=== PATIENT | male | born 1965 | race Hispanic/Latino ===

== ENCOUNTER 2024-06-23 07:38 | Observation (INO) | payer BC, OTHER ==
[~2024-06-23] VITALS: Ht 167.6 cm; Wt 100.2 kg
[~2024-06-23 07:38] MED LIST: MELOXICAM7.5 MG PO
[2024-06-23] MEDS ORDERED: SODIUM CHLORIDE 0.9% 500ML 500 ML ONE (09:04)
[2024-06-23] MEDS ORDERED: TRANEXAMIC ACID 20 ML ONE (09:05)
[2024-06-23] MEDS ORDERED: Vancomycin IV 500 MG ONE (09:05)
[2024-06-23] MEDS: DEXAMETHASONE SOD PHOS 10 MG/1 ML VIAL ONE (09:28)
[2024-06-23] MEDS: CELECOXIB 200 MG CAP ONE (09:28)
[2024-06-23] MEDS: LACTATED RINGER'S 1,000 ML ONE (09:28)
[2024-06-23] MEDS: GABAPENTIN 300 MG CAP ONE (09:29)
[2024-06-23] MEDS: Vancomycin IV 1 GM VIAL ONE (09:29)
[2024-06-23] MEDS: SODIUM CHLORIDE 0.9% 250ML 250 ML ONE (09:29)
[2024-06-23] MEDS ORDERED: ROPIVACAINE 0.5% 5 MG/ML 30 ML SDV ONE (10:45)
[2024-06-23] MEDS ORDERED: HYDRALAZINE HCL 20 MG/ML VIAL ONE (12:31)
[2024-06-23] MEDS ORDERED: ACETAMINOPHEN 650 MG SUPP PR PRN (13:15)
[2024-06-23] MEDS ORDERED: ONDANSETRON HCL INJ 2MG/ML 2ML 2 MG/ML VIAL IV PRN (13:15)
[2024-06-23] MEDS ORDERED: DIPHENHYDRAMINE HCL INJ 50 MG/ML VIAL IV PRN (13:15)
[2024-06-23] MEDS ORDERED: ZOLPIDEM TARTRATE 5 MG TAB PO PRN (13:15)
[2024-06-23] MEDS ORDERED: DOCUSATE SODIUM 100 MG CAP PO PRN (13:15)
[2024-06-23] MEDS: MEPERIDINE HCL INJ 25 MG/ML VIAL IV ONE (13:25)
[2024-06-23] MEDS: FENTANYL CITRATE/PF 100MCG/2 ML INJ IV ONE (13:30)
[2024-06-23] MEDS ORDERED: FENTANYL CITRATE/PF 100MCG/2 ML INJ ONE (13:50)
[2024-06-23 15:00] VITALS: BP 131/81; PULSE 73; RESP 18; TEMP 97.5; O2SAT 97
[2024-06-23] MEDS: HYDROCODONE/APAP 7.5MG-325MG 1 EA TAB PO PRN (15:28)
[2024-06-23] MEDS: SODIUM CHLORIDE 0.9% 1000ML 1,000 ML IV SCH (15:29)
[2024-06-23 15:40] VITALS: PULSE 78; RESP 18; O2SAT 96
[2024-06-23 15:45] VITALS: BP 139/92; PULSE 87; RESP 17; TEMP 97; O2SAT 97
[2024-06-23] MEDS: CELECOXIB 200 MG CAP PO SCH (16:37)
[2024-06-23] MEDS: ASPIRIN 325 MG TAB PO SCH (16:37)
[2024-06-23] MEDS: ROPIVACAINE/EPI/CLONIDINE/KET 50 ML SYRINGE INJ ONE (16:47)
[2024-06-23] MEDS: FENTANYL CITRATE/PF 100MCG/2 ML INJ ONE (16:47)
[2024-06-23] MEDS: MEPERIDINE HCL INJ 25 MG/ML VIAL ONE (16:47)
[2024-06-23 20:00] VITALS: BP 134/82; PULSE 70; RESP 19; TEMP 97.3; O2SAT 100
[2024-06-23 20:05] VITALS: PULSE 82; RESP 18; O2SAT 97
[2024-06-23] MEDS: Vancomycin IV 1 GM in SODIUM CHLORIDE 0.9% 250ML 250 ML IV SCH (20:33)
[2024-06-24] VITALS: BP 137/83; PULSE 65; RESP 18; TEMP 97.3; O2SAT 96
[2024-06-24 04:00] VITALS: BP 126/83; PULSE 67; RESP 20; TEMP 98; O2SAT 99
[2024-06-24 05:43] LABS: HEMATOCRIT 35.6 % (38.2-49.6); HEMOGLOBIN 11.1 g/dL (14.0-18.0)
[2024-06-24 07:28] VITALS: BP 123/88; PULSE 72; RESP 17; TEMP 98.2; O2SAT 99
[2024-06-24 07:53] VITALS: PULSE 76; RESP 18; O2SAT 98
[2024-06-24 07:58] VITALS: BP 123/88; PULSE 76; RESP 18; TEMP 98.2; O2SAT 98
[2024-06-24] MEDS ORDERED: DEXTROSE 50% SYRINGE 50 ML IV PRN (08:45)
[2024-06-24] MEDS ORDERED: ONDANSETRON HCL 4 MG ORAL DISINTEGRATING TAB PO PRN (11:00)
[2024-06-24 11:18] VITALS: BP 137/78; PULSE 78; RESP 18; TEMP 97.5; O2SAT 98
[2024-06-24] MEDS: INSULIN LISPRO 100 UNIT/1 ML 3ML VIAL SQ SCH (11:22)
[2024-06-24] MEDS: HYDROCODONE/APAP 5MG-325MG TAB PO PRN (12:48)
[2024-06-24] MEDS ORDERED: ACETAMINOPHEN 1000 MG/100 ML IV PRN (13:15)
[2024-06-24] MEDS ORDERED: ASPIRIN81 MG PO (14:23)
== END 2024-06-24 15:20 | disposition home health service (06) ==
LOC: OR 07:38 → PACU V 13:01 → MED/SURG 14:24
PROVIDERS: ADMIT Specialist; ATTEND Specialist
DX: T84.033A Mechanical loosening of internal left knee prosthetic joint, initial encounter (principal); Z96.652 Presence of left artificial knee joint; Y83.8 Other surgical procedures as the cause of abnormal reaction of the patient, or of later complication, without mention of misadventure at the time of the procedure; I10 Essential (primary) hypertension; E78.5 Hyperlipidemia, unspecified; E66.01 Morbid (severe) obesity due to excess calories; Z68.35 Body mass index [BMI] 35.0-35.9, adult; Z79.899 Other long term (current) drug therapy; Z79.82 Long term (current) use of aspirin
CPT/HCPCS: 27487; 36415 ×2; 73560; 82948 ×2; 85014; 85018; 86850; 86900; 94799 ×2; 97116 ×2; 97161; 97530; C1713 ×4; C1776 ×5; G0378 ×2; J0360; J1100; J2175; J2795; J3010; J3370 ×3; J7030; J7040; J7050 ×2; J7121

== ENCOUNTER 2024-07-29 14:45 | Outpatient (RCR) | payer OTHER ==
[~2024-07-29 14:45] MED LIST changes: +ASPIRIN81 MG PO
== END 2024-08-01 ==
LOC: PT 14:45
PROVIDERS: ATTEND Physician Assistant
DX: Z47.1 Aftercare following joint replacement surgery (principal); Z96.652 Presence of left artificial knee joint; M25.562 Pain in left knee; M25.662 Stiffness of left knee, not elsewhere classified; M62.81 Muscle weakness (generalized); R26.89 Other abnormalities of gait and mobility

== ENCOUNTER → 2024-09-01 | Outpatient (RCR) | payer OTHER | LOC: PT 08-04 07:20 | PROVIDERS: ATTEND Physician Assistant | DX: Z47.1 Aftercare following joint replacement surgery (principal); Z96.652 Presence of left artificial knee joint; M25.562 Pain in left knee; M62.81 Muscle weakness (generalized); M25.662 Stiffness of left knee, not elsewhere classified; R26.89 Other abnormalities of gait and mobility ==

== ENCOUNTER → 2024-10-02 | Outpatient (RCR) | payer OTHER | LOC: PT 09-04 11:18 | PROVIDERS: ATTEND Physician Assistant | DX: Z47.1 Aftercare following joint replacement surgery (principal); Z96.652 Presence of left artificial knee joint; M62.81 Muscle weakness (generalized); R26.89 Other abnormalities of gait and mobility ==

== ENCOUNTER 2024-10-13 10:00 | Outpatient (RCR) | payer OTHER | END 2024-10-30 | LOC: PT 10:00 | PROVIDERS: ATTEND Physician Assistant | DX: Z47.1 Aftercare following joint replacement surgery (principal); Z96.652 Presence of left artificial knee joint; M25.562 Pain in left knee; M25.662 Stiffness of left knee, not elsewhere classified; M62.81 Muscle weakness (generalized); R26.89 Other abnormalities of gait and mobility ==

== ENCOUNTER 2025-02-15 11:25 | Inpatient (IN) | payer OTHER ==
[2025-02-12 12:01] LABS: CALCIUM 9.2 mg/dL (8.4-10.2); CREATININE, SERUM 0.79 mg/dL (0.72-1.25)
[~2025-02-15] VITALS: Ht 167.6 cm; Wt 103.4 kg
[~2025-02-15 11:25] MED LIST changes: +METFORMIN HCL850 MG PO
[2025-02-15] MEDS: GABAPENTIN 300 MG CAP ONE (12:11)
[2025-02-15] MEDS: CELECOXIB 200 MG CAP ONE (12:11)
[2025-02-15] MEDS: DEXAMETHASONE SOD PHOS 10 MG/1 ML VIAL ONE (12:11)
[2025-02-15] MEDS: LACTATED RINGER'S 1,000 ML ONE (12:11)
[2025-02-15] MEDS: SODIUM CHLORIDE 0.9% 250ML 250 ML ONE (12:11)
[2025-02-15] MEDS: Vancomycin IV 1 GM VIAL ONE (12:12)
[2025-02-15 13:36] LABS: BASOPHILS % 0.3 % (0.0-1.0); EOSINOPHILS # (AUTO) 0.1 (0.0-0.4); EOSINOPHILS % 0.8 % (0.0-6.0); HEMATOCRIT 39.1 % (38.2-49.6); LYMPHOCYTES # (AUTO) 2.2 (1.0-3.2); LYMPHOCYTES % 24.9 % (18.0-39.1); MEAN CORPUSCULAR HEMOGLOBIN 26.5 pg (28-32); MEAN CORPUSCULAR HGB CONC 30.7 g/dL (31-35); MEAN CORPUSCULAR VOLUME 86.5 fL (81-99); MONOCYTES # (AUTO) 0.6 (0.2-0.8); MONOCYTES % 6.9 % (4.4-11.3); NEUTROPHILS # (AUTO) 5.8 (2.1-6.9); NEUTROPHILS % 66.4 % (38.7-80.0); PLATELET COUNT 307 x10e3/uL (140-360); RED BLOOD COUNT 4.52 x10e6/uL (4.3-5.7); RED CELL DISTRIBUTION WIDTH 16.2 % (11.7-14.4); WHITE BLOOD COUNT 8.74 x10e3/uL (4.8-10.8)
[2025-02-15] MEDS ORDERED: FENTANYL CITRATE/PF 100MCG/2 ML INJ ONE ×2 (14:22→14:28)
[2025-02-15] MEDS ORDERED: BUPIVACAINE/EPI 0.5% 30ML SDV-MPF INJ ONE (14:22)
[2025-02-15] MEDS ORDERED: DEXAMETHASONE SOD PHOS INJ 4 MG/ML SDV ONE ×2 (14:22→15:11)
[2025-02-15] MEDS ORDERED: MIDAZOLAM HCL 2 MG/2 ML VIAL ONE (14:22)
[2025-02-15] MEDS ORDERED: LIDOCAINE HCL 2% LOCAL INJ 5 ML SDV VIAL INJ ONE (14:27)
[2025-02-15] MEDS ORDERED: PROPOFOL IV EMULSION 10 MG/ML 20 ML VIAL ONE (14:28)
[2025-02-15] MEDS ORDERED: ONDANSETRON HCL INJ 2MG/ML 2ML 2 MG/ML VIAL ONE (15:11)
[2025-02-15] MEDS ORDERED: ACETAMINOPHEN 1000 MG/100 ML 100 ML IV ONE (15:39)
[2025-02-15] MEDS ORDERED: TOBRAMYCIN 1.2GM BULK BOTTLE ONE (16:07)
[2025-02-15] MEDS ORDERED: DIPHENHYDRAMINE HCL INJ 50 MG/ML VIAL IV PRN (17:00)
[2025-02-15] MEDS ORDERED: ACETAMINOPHEN 650 MG SUPP PR PRN (17:00)
[2025-02-15] MEDS: HYDROCODONE/APAP 7.5MG-325MG 1 EA TAB PO ONE (17:17)
[2025-02-15 18:00] VITALS: BP 171/95; PULSE 68; RESP 19; TEMP 97.5; O2SAT 100
[2025-02-15] MEDS: HYDROCODONE/APAP 5MG-325MG TAB PO PRN (20:10)
[2025-02-15] MEDS: CELECOXIB 200 MG CAP PO SCH (20:10)
[2025-02-15] MEDS: SODIUM CHLORIDE 0.9% 1000ML 1,000 ML IV SCH (20:11)
[2025-02-15 20:15] VITALS: BP 136/92; PULSE 63; RESP 20; TEMP 97.5; O2SAT 100
[2025-02-15] MEDS ORDERED: ZOLPIDEM TARTRATE 5 MG TAB PO PRN (21:00)
[2025-02-15 21:03] VITALS: BP 171/95; PULSE 68; RESP 19; TEMP 97.5; O2SAT 100
[2025-02-15 22:34] VITALS: BP 171/95; PULSE 68; RESP 19; TEMP 97.5; O2SAT 100
[2025-02-15] MEDS: Vancomycin IV 1 GM in SODIUM CHLORIDE 0.9% 250ML 250 ML IV SCH (23:11)
[2025-02-16] VITALS (8 sets, daily range): BP systolic 125–188; BP diastolic 70–107; PULSE 58–84; RESP 18–20; TEMP 97.5–98.6; O2SAT 96–100
[2025-02-16] MEDS: ASPIRIN 325 MG TAB PO SCH (04:50)
[2025-02-16 06:04] LABS: HEMATOCRIT 28.1 % (38.2-49.6); HEMOGLOBIN 8.8 g/dL (14.0-18.0)
[2025-02-16] MEDS ORDERED: ACETAMINOPHEN 325 MG TAB PO PRN (08:45)
[2025-02-16] MEDS ORDERED: DEXTROSE 50% SYRINGE 50 ML IV PRN (08:45)
[2025-02-16] MEDS ORDERED: HYDRALAZINE HCL 25 MG TAB PO PRN (08:45)
[2025-02-16] MEDS: SENNA-S TABLET PO SCH (09:32)
[2025-02-16] MEDS: INSULIN LISPRO 100 UNIT/1 ML 3ML VIAL SQ SCH (12:12)
[2025-02-16] MEDS ORDERED: ACETAMINOPHEN 1000 MG/100 ML IV PRN (17:00)
[2025-02-16] MEDS: ONDANSETRON HCL INJ 2MG/ML 2ML 2 MG/ML VIAL IV PRN (20:45)
[2025-02-16] MEDS: Vancomycin IV 1.25 GM in SODIUM CHLORIDE 0.9% 250ML 250 ML IV SCH (22:07)
[2025-02-16] MEDS: HYDROCODONE/APAP 7.5MG-325MG 1 EA TAB PO PRN (22:25)
[2025-02-17] VITALS (9 sets, daily range): BP systolic 110–158; BP diastolic 63–86; PULSE 68–103; RESP 16–18; TEMP 97.9–98.4; O2SAT 97–100
[2025-02-17] MEDS ORDERED: VANCOMYCIN HCL 1.25 GM in SODIUM CHLORIDE 0.9% 250ML 250 ML IV SCH (07:45)
[2025-02-17 09:09] LABS: HEMATOCRIT 34.4 % (38.2-49.6); HEMOGLOBIN 10.9 g/dL (14.0-18.0)
[2025-02-17] MEDS: VANCOMYCIN HCL 1.25 GM in SODIUM CHLORIDE 0.9% 250ML 250 ML IV SCH (11:10)
[2025-02-17] MEDS: DOCUSATE SODIUM 100 MG CAP PO PRN (22:26)
[2025-02-18 03:17] VITALS: BP 129/72; PULSE 94; RESP 18; TEMP 98.2; O2SAT 96
[2025-02-18 07:49] VITALS: BP 115/68; PULSE 98; RESP 17; TEMP 98.2; O2SAT 98
[2025-02-18 09:21] VITALS: BP 115/68; PULSE 98; RESP 17; TEMP 98.2; O2SAT 98
[2025-02-18 11:15] VITALS: BP 103/67; PULSE 98; RESP 19; TEMP 98; O2SAT 95
[2025-02-19] MEDS ORDERED: CEFTRIAXONE 2 GM in SODIUM CHLORIDE 0.9% 100 ML IV SCH (09:00)
== END 2025-02-18 14:20 | disposition home or self-care (01) | DRG 464 ==
LOC: OR 11:25 → MED/SURG2 18:31
PROVIDERS: ADMIT Internal Medicine; ATTEND Internal Medicine
PROC: 0SHD08Z Insertion of Spacer into Left Knee Joint, Open Approach (ICD-10-PCS; 2025-02-15)
PROC: 0SBD0ZZ Excision of Left Knee Joint, Open Approach (ICD-10-PCS; 2025-02-15)
PROC: 0QDH0ZZ Extraction of Left Tibia, Open Approach (ICD-10-PCS; 2025-02-15)
PROC: 0SPD0JZ Removal of Synthetic Substitute from Left Knee Joint, Open Approach (ICD-10-PCS; principal; 2025-02-15 14:53)
PROC: 05HY33Z Insertion of Infusion Device into Upper Vein, Percutaneous Approach (ICD-10-PCS; 2025-02-16)
PROC: 3E03329 Introduction of Other Anti-infective into Peripheral Vein, Percutaneous Approach (ICD-10-PCS; 2025-02-16)
DX: T84.54XA Infection and inflammatory reaction due to internal left knee prosthesis, initial encounter (principal); M00.862 Arthritis due to other bacteria, left knee; M00.9 Pyogenic arthritis, unspecified; M85.862 Other specified disorders of bone density and structure, left lower leg; E66.9 Obesity, unspecified; M19.90 Unspecified osteoarthritis, unspecified site; E11.9 Type 2 diabetes mellitus without complications; Z79.84 Long term (current) use of oral hypoglycemic drugs
CPT/HCPCS: 36415; 36569; 71045; 80048; 80202; 82948; 83036; 85014; 85018; 85025; 86850; 86900; 87071; 87075; 87205; 93005; 96372; C1713; J0692; J1100; J2003; J2250; J2405; J7030; J7050

== ENCOUNTER 2025-06-21 07:22 | Inpatient (IN) | payer OTHER ==
[2025-06-14 15:41] LABS: BODY FLUID TYPE SYNOVIAL
[2025-06-14 15:42] LABS: BODY FLUID APPEARANCE SL.CLOUDY; BODY FLUID COLOR YELLOW
[2025-06-14 16:08] LABS: BASOPHILS % 0.3 % (0.0-1.0); EOSINOPHILS % 0.3 % (0.0-6.0); LYMPHOCYTES % 28.8 % (18.0-39.1); MONOCYTES % 5.7 % (4.4-11.3); NEUTROPHILS % 64.2 % (38.7-80.0); RED CELL DISTRIBUTION WIDTH 19.3 % (11.7-14.4)
[2025-06-14 16:31] LABS: EST GLOMERULAR FILTRATION RATE 105.0 ML/MIN (>=60)
[2025-06-14 16:56] LABS: WBC,BODY FLUID 76 cells/uL
[2025-06-14 19:28] LABS: LYMPHOCYTES,BODY FLUID 56 %; MONO/MACROPHG,BODY FLUID 8 %; NEUTROPHILS,BODY FLUID 36 %; TOTAL CELLS COUNTED (DIFF) 25
[~2025-06-21] VITALS: Ht 167.6 cm; Wt 95.3 kg
[~2025-06-21 07:22] MED LIST changes: +METOPROLOL SUCC25 MG PO
[2025-06-21] MEDS: DEXAMETHASONE SOD PHOS 10 MG/1 ML VIAL ONE (08:09)
[2025-06-21] MEDS: CELECOXIB 200 MG CAP ONE (08:09)
[2025-06-21] MEDS: LACTATED RINGER'S 1,000 ML ONE (08:09)
[2025-06-21] MEDS: GABAPENTIN 300 MG CAP ONE (08:09)
[2025-06-21] MEDS: SODIUM CHLORIDE 0.9% 250ML 250 ML ONE (08:10)
[2025-06-21] MEDS: Vancomycin IV 1 GM VIAL ONE (08:10)
[2025-06-21] MEDS ORDERED: LIDOCAINE HCL 2% LOCAL INJ 5 ML SDV VIAL INJ ONE (08:26)
[2025-06-21] MEDS ORDERED: PROPOFOL IV EMULSION 10 MG/ML 20 ML VIAL ONE (08:26)
[2025-06-21] MEDS ORDERED: ACETAMINOPHEN 1000 MG/100 ML 100 ML IV ONE (08:26)
[2025-06-21] MEDS ORDERED: FENTANYL CITRATE/PF 100MCG/2 ML INJ ONE (08:26)
[2025-06-21] MEDS ORDERED: SEVOFLURANE INHAL SOLN 250 ML PEN BTL ONE (08:26)
[2025-06-21] MEDS ORDERED: ONDANSETRON HCL INJ 2MG/ML 2ML 2 MG/ML VIAL ONE (09:55)
[2025-06-21] MEDS ORDERED: LACTATED RINGER'S 1,000 ML ONE (11:38)
[2025-06-21] MEDS ORDERED: DIPHENHYDRAMINE HCL INJ 50 MG/ML VIAL IV PRN (12:00)
[2025-06-21] MEDS ORDERED: DOCUSATE SODIUM 100 MG CAP PO PRN (12:00)
[2025-06-21] MEDS ORDERED: HYDROCODONE/APAP 5MG-325MG TAB PO PRN (12:00)
[2025-06-21] MEDS ORDERED: ACETAMINOPHEN 650 MG SUPP PR PRN (12:00)
[2025-06-21] MEDS ORDERED: ONDANSETRON HCL INJ 2MG/ML 2ML 2 MG/ML VIAL IV PRN (12:00)
[2025-06-21] MEDS: HYDROMORPHONE 1MG/1ML INJ ONE (12:24)
[2025-06-21] MEDS ORDERED: ELIQUIS5 MG PO (13:50)
[2025-06-21 13:53] VITALS: BP 128/78; PULSE 73; RESP 19; TEMP 97.7; O2SAT 94
[2025-06-21 13:58] VITALS: BP 128/78; PULSE 73; RESP 19; TEMP 97.7; O2SAT 94
[2025-06-21 14:00] VITALS: PULSE 75; RESP 19; O2SAT 93
[2025-06-21] MEDS: HYDROCODONE/APAP 7.5MG-325MG 1 EA TAB PO PRN (14:49)
[2025-06-21] MEDS: ROPIVACAINE 246.25 MG, EPINEPHRINE HCL 1:1000 1ML 0.5 MG, CLONIDINE HCL 0.08 MG, KETORO... INJ ONE (14:50)
[2025-06-21] MEDS: SODIUM CHLORIDE 0.9% 1000ML 1,000 ML IV SCH (16:04)
[2025-06-21] MEDS: CELECOXIB 100 MG CAP PO SCH (16:04)
[2025-06-21] MEDS: ASPIRIN 325 MG TAB PO SCH (16:04)
[2025-06-21 17:27] VITALS: BP 126/80; PULSE 65; RESP 17; TEMP 98.1; O2SAT 99
[2025-06-21 20:00] VITALS: BP 113/82; PULSE 80; RESP 20; TEMP 98.1; O2SAT 96
[2025-06-21 20:15] VITALS: PULSE 80; RESP 18; O2SAT 96
[2025-06-21] MEDS: Vancomycin IV 1 GM in SODIUM CHLORIDE 0.9% 250ML 250 ML IV SCH (20:43)
[2025-06-21] MEDS ORDERED: ZOLPIDEM TARTRATE 5 MG TAB PO PRN (21:00)
[2025-06-22] VITALS: BP 98/69; PULSE 70; RESP 20; TEMP 97.8; O2SAT 98
[2025-06-22 04:00] VITALS: BP 118/82; PULSE 71; RESP 20; TEMP 98; O2SAT 99
[2025-06-22 08:10] VITALS: PULSE 89; RESP 18; O2SAT 96
[2025-06-22 08:20] VITALS: BP 123/81; PULSE 84; RESP 18; TEMP 98.5; O2SAT 98
[2025-06-22] MEDS ORDERED: DEXTROSE 50% SYRINGE 50 ML IV PRN (08:45)
[2025-06-22] MEDS: SENNA-S TABLET PO SCH (09:00)
[2025-06-22 10:00] VITALS: BP 123/81; PULSE 84; RESP 18; TEMP 98.5; O2SAT 98
[2025-06-22] MEDS: INSULIN LISPRO 100 UNIT/1 ML 3ML VIAL SQ SCH (11:30)
[2025-06-22 11:36] VITALS: BP 113/85; PULSE 83
[2025-06-22] MEDS: METFORMIN HCL 500 MG TAB PO SCH (11:36)
[2025-06-22] MEDS: METOPROLOL SUCCINATE 25 MG TAB XL PO SCH (11:36)
[2025-06-22] MEDS ORDERED: ACETAMINOPHEN 1000 MG/100 ML IV PRN (12:00)
== END 2025-06-22 12:21 | disposition home health service (06) | DRG 468 ==
LOC: OR 07:22 → PACU V 12:00 → MED/SURG 13:11
PROVIDERS: ADMIT Specialist; ATTEND Specialist
PROC: 0SPD08Z Removal of Spacer from Left Knee Joint, Open Approach (ICD-10-PCS; 2025-06-21)
PROC: 0SRD0J9 Replacement of Left Knee Joint with Synthetic Substitute, Cemented, Open Approach (ICD-10-PCS; principal; 2025-06-21 09:48)
DX: Z47.33 Aftercare following explantation of knee joint prosthesis (principal); I10 Essential (primary) hypertension; E11.9 Type 2 diabetes mellitus without complications; Z79.01 Long term (current) use of anticoagulants; Z79.4 Long term (current) use of insulin; Z86.718 Personal history of other venous thrombosis and embolism; Z89.512 Acquired absence of left leg below knee
CPT/HCPCS: 36415; 80048; 82948; 85014; 85018; 85025; 86850; 86900; 87071; 87075; 87205; 88304; 88305; 88331; 89051; 94799; C1713; C1776; J0169; J1100; J1171; J1885; J2003; J2405; J2795; J3373; J7030; J7050